=== PATIENT | male | born 1965 | race Caucasian/White ===

== ENCOUNTER 2016-10-12 16:13 | Emergency (ER) | payer OTHER ==
[2016-10-12 16:18] VITALS: TEMP 98.6
--- NOTE | 2016-10-12 17:06 | EDPHY ---
H & P Time Seen by Provider: 10/12/16 17:00 HPI/ROS: CHIEF COMPLAINT: Right hand laceration HISTORY OF PRESENT ILLNESS: 50-year-old [id number] male sustained accidental laceration to his right 1st metacarpal region when he was closing his pocket knife. Positive paresthesia distally. No motor dysfunction. PHYSICAL EXAM (Prior to examination, patient consented to physical exam, hands were washed and my usual and customary physical exam procedures followed) 1) GENERAL: Well-developed, well-nourished, alert and oriented. Appears to be in no acute distress. 2) HEAD: Normocephalic 3) HEENT: sclera anicteric 4) LUNGS: Breathing comfortably. 5) SKIN: 4 cm well-demarcated laceration to the 1st metacarpal region 6) MUSCULOSKELETAL: patient has difficulty with adduction of the thumb. 7) NEUROLOGIC: Decreased sensation and two-point discrimination distally Smoking Status: Never smoked Constitutional: Initial Vital Signs Temperature (C) 37 C 10/12/16 16:16 Heart Rate 69 10/12/16 16:16 Respiratory Rate 18 10/12/16 16:16 Blood Pressure 137/81 H 10/12/16 16:16 O2 Sat (%) 97 10/12/16 16:16 O2 Delivery Mode Room Air Allergies/Adverse Reactions: No Known Allergies Allergy (Unverified 10/12/16 16:15) Home Medications: Medication Instructions Recorded Cephalexin [Keflex] 500 mg PO QID 5 Days 10/12/16 MDM/Departure - MDM Procedures: Procedure: Laceration repair. I explained the indications, risks and benefits for both laceration repair and anesthetic administration. Verbal consent was obtained from the patient . The laceration on the right thumb was anesthetized using 0.5% bupivicaine without epinephrine . After anesthetic administered the patient was observed for a period of time and had no apparent adverse effects. The wound was cleaned, prepped, draped in normal sterile fashion and explored to its base. No foreign body seen, no foreign bodies palpated. There were deep structures affected The wound edges were closed with 7 simple interrupted 5 O Prolene sutures. The wound repair was complex. The procedure was performed by myself. Patient has been informed that scarring will occur, although efforts have been made to minimize this. Procedure: Splint A Velcro thumb spica splint was applied by ER cost recovery technician. After application of the splint I returned and re-examined the patient. The splint was adequately immobilizing the joint and distal to the splint the patient's circulation and sensation were intact. Patient shows no signs of compartment syndrome. Was given orthopedic precautions. ED Course/Re-evaluation: Patient has been re-evaluated with serial examinations. Does have difficulty with abduction, rule out adductor policis brevis injury. I have recommended he contact [facility] surgery Dr. Yonathan Logan to be seen in the next 1-2 days for re-evaluation. The meantime he has been placed in a thumb spica splint, started on prophylactic antibiotics and wound closed. Usual and customary wound precautions and instructions provided. I discussed the case with secondary supine position Dr. Meir Gautam - Depart Disposition: Home, Routine, Self-Care Clinical Impression: Laceration of right hand Qualifiers: Encounter type: initial encounter Foreign body presence: without foreign body Qualified Code(s): S61.411A - Laceration without foreign body of right hand, initial encounter Condition: Good Instructions: Laceration (ED) Additional Instructions: Return to the ER if you develop redness, swelling, discharge, warmth to the wound, red streaks going up your arm or any other symptoms that concern you. Prescriptions: Cephalexin [Keflex] 500 mg PO QID 5 Days Referrals: Yonathan Logan MD [Medical Doctor] - 1-2 days without fail (Dr. Yonathan Logan is a hand surgeon)
[2016-10-12 18:05] VITALS: BP 132/84; PULSE 84; RESP 14; O2SAT 96
== END 2016-10-12 18:04 | disposition home or self-care (01) ==
PROC: 0HQFXZZ Repair Right Hand Skin, External Approach (ICD-10-PCS; principal; 2016-10-12)
DX: S61.411A Laceration without foreign body of right hand, initial encounter (principal); W26.0XXA Contact with knife, initial encounter
CPT/HCPCS: L3807

== ENCOUNTER → 2018-06-11 | Outpatient (CLI) | payer OTHER | LOC: BMCIMAGING 16:31 | PROVIDERS: ATTEND Internal Medicine | DX: M25.552 Pain in left hip (principal) ==